=== PATIENT | male | born 1990 | race Caucasian/White ===

== ENCOUNTER 2024-07-02 11:26 | Emergency (ER) | payer OTHER, SELFPAY ==
[2024-07-02 11:29] VITALS: BP 149/103; PULSE 74; RESP 18; TEMP 36.2; O2SAT 94
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
[2024-07-02 11:59] LABS: Abs Immature Grans 0.01 10^3/uL (0.0-0.06); Absolute Basophil Count 0.04 10^3/uL (0.0-0.2); Absolute Eosinophil Count 0.14 10^3/uL (0.0-0.7); Absolute Lymphocyte Count 1.85 10^3/uL (1.2-3.4); Absolute Neutrophil Count 5.34 10^3/uL (1.2-6.7); Basophils % 0.5 %; Eosinophils % 1.8 %; HCT 41.5 % (40.0-50.0); HGB 14.5 g/dL (13.5-17.5); Immature Grans % 0.1 %; Lymphocytes % 24.1 %; MCH 30.8 pg (27.0-33.0); MCHC 34.9 % (32.0-36.0); MCV 88 fL (80-95); MPV 10.8 fL (8.0-11.0); Monocytes % 3.9 %; Neutrophils % 69.6 %; Platelet Count 208 10^3/uL (130-400); RBC 4.71 10^6/uL (4.36-5.78); RDW 12.2 % (11.8-14.1); RDW-SD 39.2 fL; WBC 7.68 10^3/uL (4.4-10.8)
[2024-07-02] MEDS: Normal Saline - Diluent 50 ML VIAL IJ (11:59)
[2024-07-02] MEDS: Omnipaque 350 MG/ML 100 ML BTL 70 ML IJ (12:00)
[2024-07-02 12:23] LABS: ALT 20 U/L (16-63); AST 15 U/L (15-37); Albumin 4.4 g/dL (3.4-5.0); Alkaline Phosphatase 54 U/L (46-116); BUN 8 mg/dL (7-18); Bilirubin, Total 0.63 mg/dL (0.2-1.0); CREATININE 0.8 mg/dL (0.70-1.30); Calcium 8.9 mg/dL (8.5-10.1); Chloride 102 mmol/L (98-107); Estimated GFR 118.36 (mL/min/1.73m2); Glucose 105 mg/dL (74-106); Potassium 4.5 mmol/L (3.5-5.1); Sodium 139 mmol/L (136-145); Total Protein 7.4 g/dL (6.4-8.2)
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
[2024-07-02 12:42] LABS: INR 1.2 (0.9-1.1); Prothrombin Time 11.7 sec (9.1-11.1)
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
[2024-07-02 13:22] VITALS: BP 140/84; PULSE 72; RESP 18; TEMP 36.2; O2SAT 94
[2024-07-02] MEDS: Lidocaine 2% Pres-Free W/EPI 1/200,000 20 ML VIAL (13:25)
== END 2024-07-02 13:33 | disposition home or self-care (01) ==
PROVIDERS: Emergency Provider Emergency Medicine
DX: S01.01XA Laceration without foreign body of scalp, initial encounter (principal); S00.83XA Contusion of other part of head, initial encounter; Z23 Encounter for immunization; T71.193A Asphyxiation due to mechanical threat to breathing due to other causes, assault, initial encounter; Y04.8XXA Assault by other bodily force, initial encounter
CPT/HCPCS: 12001; 36415; 70496; 70498; 80053; 90471; 90715; 99285; 70486; 85025; 85610; 99284; J3490